=== PATIENT | male | born 1930 | race Caucasian/White ===

== ENCOUNTER → 2017-03-26 | Outpatient (CLI) | payer MEDICARE ==
[~2017-03-26] MED LIST: ALPARAZOLAM0.5 MG PO; ALPRAZOLAM PO; AMOXICOT500 MG PO; ASPIRIN PO; ASPIRIN81 MG PO; B 12 PO; CENTRUM SILVER1 TA2 PO; CIPRO 500MG TA500 MG PO; CLEAR LAX PO; DEPAKOTE 500MG500 MG PO; DEPAKOTE PO; DEPAKOTE500 MG PO; DIVALPROEX DR500 MG PO; DIVALPROEX SOD500 MG PO; DOXAZOSIN PO; DOXAZOSIN4 MG PO; FINASTERIDE5 MG PO; FISH OIL PO; FUROSEMIDE 20MG20 MG FT; FUROSEMIDE 20MG20 MG PO; HYDROCHLOROTH12.5 M1 PO; HYDROCLOROTHIAZIDE PO; ICAPS MV1 TA1 PO; INDOCIN25 M1 PO; LITHIUM PO; MEDROL 4MG. DOSE4 MG PO; MULTIVITAMIN PO; PROPRANOLOL ER80 MG PO; TRIAMCINOLON 0.15 GM TP; TYLENOL ES500 M1 PO; [UNRECOGNIZED DRUG - OTHER] TP
[2017-03-26 13:28] LABS: URINE BILIRUBIN - DIPSTICK NEGATIVE (NEG); URINE BLOOD 3+ (NEG)
== END ==
LOC: LAB 13:18
PROVIDERS: Family Medicine
DX: R41.0 Disorientation, unspecified (principal); W19.XXXA Unspecified fall, initial encounter